=== PATIENT | male | born 1940 | race Caucasian/White ===

== ENCOUNTER 2018-01-09 11:52 | Emergency (ER) | payer MEDICARE, OTHER ==
[2018-01-09] MEDS ORDERED: CEPHALEXIN 500 MG CAPSULE PO ONE (12:48)
[2018-01-09] MEDS ORDERED: DIPH/PERTUSS(ACELL)/TETANUS VAC/PF 0.5 ML SYR (>=10YO) IM ONE (12:48)
[2018-01-09] MEDS ORDERED: BUPIVACAINE HCL 0.5 % INJ/PF 30 ML SDV INJ ONE (12:48)
--- NOTE | 2018-01-09 12:49 | ER Document Report ---
HPI - HPI Patient complains to provider of: Thumb laceration Onset: Just prior to arrival Onset/Duration: Sudden Quality of pain: Achy Pain Level: 1 Context: Patient states that he was using a miter saw and accidentally cut his left thumb. Patient denies any difficulty with moving the thumb. Associated Symptoms: Other - Left thumb laceration Exacerbated by: Movement Relieved by: Denies Similar symptoms previously: No Recently seen / treated by doctor: No - ROS ROS below otherwise negative: Yes Systems Reviewed and Negative: Yes All other systems reviewed and negative - GASTROINTESTINAL Gastrointestinal: DENIES: Nausea - MUSCULOSKELETAL Musculoskeletal: REPORTS: Extremity pain - DERM Skin Color: Normal Skin Problems: Laceration Past Medical History - General Information source: Patient - Social History Smoking Status: Never Smoker Frequency of alcohol use: None Drug Abuse: None Lives with: Family Family History: Reviewed & Not Pertinent - Past Medical History Cardiac Medical History: Reports: Hx Heart Attack, Hx Hypercholesterolemia, Hx Hypertension Endocrine Medical History: Reports: Hx Hypothyroidism Past Surgical History: Reports: Hx Cardiac Surgery, Hx Coronary Artery Bypass Graft Vertical Provider Document - CONSTITUTIONAL Agree With Documented VS: Yes Exam Limitations: No Limitations General Appearance: WD/WN, No Apparent Distress - INFECTION CONTROL TRAVEL OUTSIDE OF THE [place] IN LAST 30 DAYS: No - HEENT HEENT: Atraumatic, Normocephalic - NECK Neck: Normal Inspection - RESPIRATORY Respiratory: Breath Sounds Normal, No Respiratory Distress - CARDIOVASCULAR Cardiovascular: Regular Rate, Regular Rhythm Pulses: Normal: Radial - MUSCULOSKELETAL/EXTREMETIES Musculoskeletal/Extremeties: MAEW, Tender - Tenderness to left thumb with a laceration to lateral aspect of digit - NEURO Level of Consciousness: Awake, Alert, Appropriate Motor/Sensory: No Motor Deficit - DERM Integumentary: Warm, Dry, Laceration - Irregular laceration to left thumb Course - Vital Signs Vital signs: Temp Pulse Resp BP Pulse Ox 98.1 F 66 16 154/75 H 98 01/09/18 11:59 01/09/18 11:59 01/09/18 11:59 01/09/18 11:59 01/09/18 11:59 - Diagnostic Test Radiology reviewed: Image reviewed, Reports reviewed Procedures - Laceration/Wound Repair Left Thumb Wound length (cm): 3 Wound's Depth, Shape: Irregular Anesthetic type: 0.5% Bupivacaine Wound explored: No foreign body removed Wound Debrided: Minimal Wound Repaired With: Sutures Suture Size/Type: 5:0, Nylon Number of Sutures: 11 Post-procedure wound care: Sterile dressing applied Post-procedure NV exam normal: Yes Complications: No Hands back picture: 1 - irregular lac Discharge - Discharge Clinical Impression: Laceration of left thumb Qualifiers: Encounter type: sequela Damage to nail status: with damage Foreign body presence: without foreign body Qualified Code(s): S61.112S - Laceration without foreign body of left thumb with damage to nail, sequela Condition: Stable Disposition: HOME, SELF-CARE Instructions: Laceration Care ([facility]), Prophylactic Antibiotic ([facility]), Tetanus Immunization Given ([facility]) Additional Instructions: Return immediately for any new or worsening symptoms Followup with your primary care provider, call tomorrow to make a followup appointment Suture removal in 10 days Follow-up with hand surgeon for any persistent problems Prescriptions: Cephalexin Monohydrate [Keflex 500 mg Capsule] 500 mg PO Q8 PRN 5 Days capsule PRN Reason: Referrals: JOHANN GARCIA DO [ACTIVE STAFF] - Follow up as needed
--- NOTE | 2018-01-09 14:14 | RADIOLOGY REPORT (SQ) ---
EXAM DESCRIPTION: FINGER LEFT COMPLETED DATE/TIME: 01/09/2018 1:42 pm REASON FOR STUDY: left thumb, saw injury COMPARISON: None. EXAM PARAMETERS: NUMBER OF VIEWS: Three views. TECHNIQUE: AP, lateral and oblique radiographic images acquired of the left hand. LIMITATIONS: None. FINDINGS: MINERALIZATION: Normal. BONES: No acute fracture or dislocation. No worrisome bone lesions. JOINTS: No effusion. SOFT TISSUES: 1st digit soft tissue swelling. No radiopaque foreign body. OTHER: No other significant finding. IMPRESSION: NO FRACTURE. TECHNICAL DOCUMENTATION: JOB ID: [id number] [place]-72 2010 [employer]- All Rights Reserved Reading location - IP/workstation name: [email or web address]
[2018-01-09 15:38] VITALS: BP 184/76
== END 2018-01-09 15:39 | disposition home or self-care (01) ==
LOC: ER 11:52
PROC: 0HQGXZZ Repair Left Hand Skin, External Approach (ICD-10-PCS; principal; 2018-01-09)
DX: S61.012A Laceration without foreign body of left thumb without damage to nail, initial encounter (principal); W29.8XXA Contact with other powered hand tools and household machinery, initial encounter; I25.2 Old myocardial infarction; E78.00 Pure hypercholesterolemia, unspecified; I10 Essential (primary) hypertension; E03.9 Hypothyroidism, unspecified; Z95.1 Presence of aortocoronary bypass graft; Z23 Encounter for immunization
CPT/HCPCS: 99283; 90471; 73140; 90715; 12002; J3490; A9270

== ENCOUNTER 2018-01-19 11:05 | Emergency (ER) | payer MEDICARE, OTHER ==
[2018-01-19 11:14] VITALS: BP 150/61
--- NOTE | 2018-01-19 11:22 | ER Document Report ---
ED General - General Chief Complaint: Suture Removal Stated Complaint: SUTURE REMOVAL/LEFT THUMB Time Seen by Provider: 01/19/18 11:21 Notes: Patient is a 77-year-old male that presents to the emergency department for chief complaint of suture removal from thumb injury. Patient lacerated his thumb on a miter saw 10 days ago, and was repaired with sutures at that time. Denies any fevers, chills, worsening redness or pus drainage over the course of time. Past Medical History: Hypertension, CAD, hyperlipidemia Past Surgical History: CABG Social History: Former smoker, denies alcohol or drug use Family History: Reviewed and noncontributory for presenting illness Allergies: Reviewed, see documented allergy list. REVIEW OF SYSTEMS: Unless otherwise stated in this report the patient's positive and negative responses for review of systems for constitutional, eyes, ENT, cardiovascular, respiratory, gastrointestinal, neurological, genitourinary, musculoskeletal, and integumentary systems and related systems to the presenting problem are either as stated in the HPI or were not pertinent or were negative for the symptoms and/or complaints related to the presenting medical problem. PHYSICAL EXAMINATION: Vital signs reviewed, nursing noted reviewed. GENERAL: Well-appearing, well-nourished and in no acute distress. HEAD: Atraumatic, normocephalic. EYES: Eyes appear normal, conjunctiva are normal. ENT: nares patent, oropharynx clear without exudates. Moist mucous membranes. NECK: Normal range of motion, supple without lymphadenopathy LUNGS: Breath sounds clear to auscultation bilaterally and equal. No wheezes rales or rhonchi. HEART: Regular rate and rhythm without murmurs EXTREMITIES: Nontender, good range of motion, no pitting or edema. Patient has a well approximated repaired laceration, with sutures, no evidence of infection , this is on the left thumb, distally, no other injuries noted NEUROLOGICAL: No focal neurological deficits. Moves all extremities spontaneously Motor and sensory grossly intact on exam. PSYCH: Normal mood, normal affect. SKIN: Warm, Dry, normal turgor TRAVEL OUTSIDE OF THE [place] IN LAST 30 DAYS: No - Related Data Allergies/Adverse Reactions: No Known Allergies Allergy (Verified 01/19/18 11:07) Past Medical History - Social History Smoking Status: Former Smoker Family History: Reviewed & Not Pertinent - Past Medical History Cardiac Medical History: Reports: Hx Heart Attack, Hx Hypercholesterolemia, Hx Hypertension Endocrine Medical History: Reports: Hx Hypothyroidism Renal/ Medical History: Denies: Hx Peritoneal Dialysis Past Surgical History: Reports: Hx Cardiac Surgery, Hx Coronary Artery Bypass Graft Physical Exam - Vital signs Vitals: Temp Pulse Resp BP Pulse Ox 97.5 F 62 14 150/61 H 99 01/19/18 11:13 01/19/18 11:13 01/19/18 11:13 01/19/18 11:13 01/19/18 11:13 Course - Re-evaluation Re-evalutation: Patient's wound was inspected, sutures were removed slowly one at a time, no wound dehiscence, patient given instructions for post suture removal wound care , and was discharged to home. - Vital Signs Vital signs: Temp Pulse Resp BP Pulse Ox 97.5 F 62 14 150/61 H 99 01/19/18 11:13 01/19/18 11:13 01/19/18 11:13 01/19/18 11:13 01/19/18 11:13 Discharge - Discharge Clinical Impression: Encounter for removal of sutures Condition: Stable Disposition: HOME, SELF-CARE Instructions: Suture Removal Referrals: GIA CARRILLO MD [ACTIVE STAFF] - Follow up as needed (or your primary care. )
== END 2018-01-19 11:31 | disposition home or self-care (01) ==
LOC: ER 11:05
DX: S61.012D Laceration without foreign body of left thumb without damage to nail, subsequent encounter (principal); W29.8XXD Contact with other powered hand tools and household machinery, subsequent encounter; I10 Essential (primary) hypertension; I25.10 Atherosclerotic heart disease of native coronary artery without angina pectoris; Z87.891 Personal history of nicotine dependence